=== PATIENT | male | born 1965 | race Caucasian/White ===

== ENCOUNTER 2018-09-21 10:48 | Day surgery (SDC) | payer OTHER ==
[2018-09-12 11:47] VITALS: BMI 26.9
[2018-09-21 11:15] VITALS: TEMP 98.2
[2018-09-21] MEDS ORDERED: PROPOFOL 20 ML ONE ×2 (11:17)
[2018-09-21] MEDS ORDERED: LIDOCAINE HCL/PF 2% SDV 5ML VIAL ONE (11:17)
[2018-09-21 13:20] VITALS: BP 90/51; PULSE 69
--- NOTE | 2018-09-23 15:31 | PATH ---
Surgical Pathology Report Patient Name: JS FERRARO [facility]. Rec. #: [id number] /Age/Gender: 1965 (Age: 53) / M Account: [id number] Location: [facility] Taken: 09/21/2018 Received: 09/21/2018 Reported: 09/23/2018 Physicians: Stephanie Javed M.D. Specimen(s) Received A: BX THICKENED FOLD TRANSVERSE COLON B: BX POLYP RECTUM Clinical History Screening. Postoperative diagnosis: Polyp, thickened fold in transverse colon, hemorrhoids Final Diagnosis A. TRANSVERSE COLON, THICKENED FOLD, BIOPSY: COLONIC MUCOSA SHOWING MILD SURFACE HYPERPLASTIC CHANGE. B. RECTUM, POLYP, BIOPSY: HYPERPLASTIC POLYP WITH SMALL BENIGN/REACTIVE LYMPHOID AGGREGATE. Electronically Signed Mae Pickens M.D. Gross Description A. Received in formalin, labeled " bx thickened fold transverse colon" is one piece of singh tissue measuring 0.2 cm in greatest dimension. Entirely submitted in one cassette. B. Received in formalin, labeled "polyp rectum" is one piece of singh tissue measuring 0.3 cm in greatest dimension. Entirely submitted in one cassette. AE/09/22/2018 ebram/09/22/2018
== END 2018-09-21 13:15 | disposition home or self-care (01) ==
LOC: CANPRESDC → FASU-ENDO 10:48
PROVIDERS: ATTEND Internal Medicine Gastroenterology
PROC: 0DBL8ZX Excision of Transverse Colon, Via Natural or Artificial Opening Endoscopic, Diagnostic (ICD-10-PCS; 2018-09-21)
PROC: 0DBP8ZX Excision of Rectum, Via Natural or Artificial Opening Endoscopic, Diagnostic (ICD-10-PCS; principal; 2018-09-21 12:21)
DX: Z12.11 Encounter for screening for malignant neoplasm of colon (principal); K57.30 Diverticulosis of large intestine without perforation or abscess without bleeding; K64.2 Third degree hemorrhoids; K62.1 Rectal polyp; K63.5 Polyp of colon; K63.89 Other specified diseases of intestine
CPT/HCPCS: 88305-TC